=== PATIENT | female | born 1930 | race Caucasian/White ===

== ENCOUNTER 2017-08-04 18:05 | Inpatient (IN) | payer MEDICARE, BC ==
[~2017-08-04] VITALS: Ht 162.6 cm; Wt 70.3 kg
--- NOTE | ~2017-08-04 | PN ---
PATIENT:HUMBERTO BENNETT MEDICAL RECORD: [id number] LOCATION:KENIA Norris112 ADMISSION DATE: 08/04/17 PROGRESS NOTE DATE OF SERVICE: 08/28/2017 SUBJECTIVE: The patient's case was discussed with staff. She has no new complaint. OBJECTIVE: The patient denies intent to harm herself or others. She tolerates her medicines well. Eye contact is fair. ASSESSMENT: No change in diagnoses. PLAN: The patient is not eating very well. She has a very advanced dementia. I am going to order Megace to assist with appetite stimulation. TRANSINT:[id number] Voice Confirmation ID: [id number] DOCUMENT ID: [id number] FAWN SIDDIQI MD at 1445 CC: [id number] DICTATION DATE: 08/28/17 1331 RADIO SCRIPT WRITER: 08/28/17 1348 ADM IN [facility] [address] [place] [id number]
--- NOTE | ~2017-08-04 | PN ---
PATIENT:HUMBERTO BENNETT MEDICAL RECORD: [id number] LOCATION:[facility] Norris112 ADMISSION DATE: 08/04/17 PROGRESS NOTE DATE OF SERVICE: 08/11/2017 SUBJECTIVE: The patient's case was discussed with staff. She has no new complaint. OBJECTIVE: The patient denies intent to harm herself or others. She is tolerating her medications well. ASSESSMENT: No change in diagnoses. PLAN: Brief supportive and educational interventions were made. Alf prognosis is guarded. TRANSINT:[id number] Voice Confirmation ID: [id number] DOCUMENT ID: [id number] FAWN SIDDIQI MD at 1355 CC: [id number] DICTATION DATE: 08/11/17 1338 BREAKER OFF: 08/11/17 1720 ADM IN [place] [id number] [place] [address]
--- NOTE | ~2017-08-04 | PN ---
PATIENT:HUMBERTO BENNETT MEDICAL RECORD: [id number] LOCATION:KEN[facility] Norris112 ADMISSION DATE: 08/04/17 PROGRESS NOTE DATE OF SERVICE: 08/17/2017 SUBJECTIVE: No new verbal complaint. OBJECTIVE: The patient has shown more sedation and some muscular rigidity since yesterday. On exam, mood is euthymic. Affect is very reserved. Speech is minimal. Content of thought unchanged. Sensorium unchanged. ASSESSMENT: No change in diagnosis. PLAN: 1. We will discontinue Seroquel altogether. 2. Maintain other medications for now. 3. Continue supportive therapy. TRANSINT:[id number] Voice Confirmation ID: [id number] DOCUMENT ID: [id number] HAIDER LOMBARDO III, MD at 7937 CC: [id number] DICTATION DATE: 08/17/17 1225 PAYROLL ANALYST: 08/17/17 1238 ADM IN [facility] [address] [place] [id number]
--- NOTE | ~2017-08-04 | PN ---
PATIENT:HUMBERTO BENNETT MEDICAL RECORD: [id number] LOCATION:KENIA Norris112 ADMISSION DATE: 08/04/17 PROGRESS NOTE DATE OF SERVICE: 08/15/2017 SUBJECTIVE: No new complaint noted. OBJECTIVE: Staff reports the patient is continuing to have some visual hallucinations. However, her behavior has been good. She is tolerating medications well. On exam, mood is euthymic. Affect is very constricted. Speech is rather terse. Content of thought as noted above. Sensorium unchanged. ASSESSMENT: No change in diagnosis. PLAN: 1. Continue current medications. 2. Continue supportive therapy. TRANSINT:[id number] Voice Confirmation ID: [id number] DOCUMENT ID: [id number] HAIDER LOMBARDO III, MD at 2034 CC: [id number] DICTATION DATE: 08/15/17 1114 SERVICE WRITER: 08/15/17 1213 ADM IN [facility] [address] [place] [address]
--- NOTE | ~2017-08-04 | PN ---
PATIENT:HUMBERTO BENNETT MEDICAL RECORD: [id number] LOCATION:KENIA Jr112 ADMISSION DATE: 08/04/17 PROGRESS NOTE DATE OF SERVICE: 08/18/2017 SUBJECTIVE: No new complaint. OBJECTIVE: The patient is overall doing better. She is not exhibiting stiffness as she had before. Eating is improved. She is taking medications. On exam, mood is euthymic. Affect reserved. Speech is terse. Content of thought is unchanged. Sensorium unchanged. ASSESSMENT: No change in diagnosis. PLAN: 1. Maintain current medication. 2. Continue supportive therapy. TRANSINT:[id number] Voice Confirmation ID: [id number] DOCUMENT ID: [id number] HAIDER LOMBARDO III, MD at 1142 CC: [id number] DICTATION DATE: 08/18/17 1212 RESIDENTIAL LEASING MANAGER: 08/18/17 1218 ADM IN [place] [id number] [place] [id number]
--- NOTE | ~2017-08-04 | PN ---
PATIENT:HUMBERTO BENNETT MEDICAL RECORD: [id number] LOCATION:TamaraCorbinSHALINI Norris112 ADMISSION DATE: 08/04/17 PROGRESS NOTE DATE OF SERVICE: 08/16/2017 SUBJECTIVE: No new complaint. OBJECTIVE: The patient is better overall. She is less sedated. She is more cooperative with staff. On exam, mood is euthymic. Affect bland. Speech is terse. Content of thought is unchanged. Sensorium is unchanged. PLAN: 1. All current medications will be continued. 2. Continue supportive therapy. TRANSINT:[id number] Voice Confirmation ID: [id number] DOCUMENT ID: [id number] HAIDER LOMBARDO III, MD at 2034 CC: [id number] DICTATION DATE: 08/16/17 1014 FOREST PATHOLOGY ASSOCIATE PROFESSOR: 08/16/17 1111 ADM IN [facility] [address] [place] [address]
--- NOTE | ~2017-08-04 | PN ---
PATIENT:HUMBERTO BENNETT MEDICAL RECORD: [id number] LOCATION:[facility] Norris112 ADMISSION DATE: 08/04/17 PROGRESS NOTE DATE OF SERVICE: 08/07/2017 SUBJECTIVE: No new complaint. OBJECTIVE: The patient has been showing the episodic agitation. She did require p.r.n. yesterday. However, she is taking her medications as ordered. On exam, mood is slightly anxious. Affect is shallow and brittle. Speech is repetitive. Content of thought is negative for suicidal ideation. The patient had reported visual hallucinations. Sensorium shows no change. ASSESSMENT: No change in diagnosis. PLAN: 1. Add Aricept 5 mg daily. 2. Continue other current medications. 3. Continue supportive therapy. TRANSINT:[id number] Voice Confirmation ID: [id number] DOCUMENT ID: [id number] HAIDER LOMBARDO III, MD at 0919 CC: [id number] DICTATION DATE: 08/07/17 1141 POLICY SPECIALIST: 08/07/17 1201 ADM IN [place] [address] [place] [id number]
--- NOTE | ~2017-08-04 | PN ---
PATIENT:HUMBERTO BENNETT MEDICAL RECORD: [id number] LOCATION:KENIA McdonaldCorbin112 ADMISSION DATE: 08/04/17 PROGRESS NOTE DATE OF SERVICE: 08/14/2017 SUBJECTIVE: No new complaint. OBJECTIVE: Staff reports the over the weekend, the patient was rather drowsy from time to time. Behaviorly, she has done well. Her family visited and is pleased with her progress. On exam today, mood is euthymic. Affect is very reserved. Speech is terse. Content of thought does not show evidence of overt psychosis. Sensorium shows no change. ASSESSMENT: No change in diagnosis. PLAN: 1. We will reduce Seroquel to 25 mg h.s. only. 2. Continue other current medications. 3. Continue supportive therapy. TRANSINT:[id number] Voice Confirmation ID: [id number] DOCUMENT ID: [id number] HAIDER LOMBARDO III, MD at 1903 CC: [id number] DICTATION DATE: 08/14/17 0909 CONSTRUCTION CONSULTANT: 08/14/17 1114 ADM IN [facility] [address] [place] [address]
--- NOTE | ~2017-08-04 | PN ---
PATIENT:HUMBERTO BENNETT MEDICAL RECORD: [id number] LOCATION:[facility] Norris112 ADMISSION DATE: 08/04/17 PROGRESS NOTE DATE OF SERVICE: 08/25/2017 SUBJECTIVE: The patient's case was discussed with staff. She has no new complaint. OBJECTIVE: The patient is in good behavioral control with limited insight about her condition. She tolerates her medicines well. ASSESSMENT: No change in diagnoses. PLAN: Current medicines and therapies have been reviewed and will be maintained. Long-term prognosis is guarded. TRANSINT:[id number] Voice Confirmation ID: [id number] DOCUMENT ID: [id number] FAWN SIDDIQI MD at 1921 CC: [id number] DICTATION DATE: 08/25/17 1404 TASTE TESTER: 08/25/17 1418 ADM IN [place] [id number] [place] [address]
--- NOTE | ~2017-08-04 | PN ---
PATIENT:HUMBERTO BENNETT MEDICAL RECORD: [id number] LOCATION:[facility] Norris112 ADMISSION DATE: 08/04/17 PROGRESS NOTE DATE OF SERVICE: 08/12/2017 SUBJECTIVE: The patient's case was discussed with staff. She has no new complaint. OBJECTIVE: The patient is in good behavioral control with limited insight about her condition. She tolerates her medicines well. ASSESSMENT: No change in diagnoses. PLAN: Brief supportive and educational interventions were made. Detention prognosis is guarded. I am going to change the patient's Ativan from 3 times a day to twice a day because of some daytime sedation. TRANSINT:[id number] Voice Confirmation ID: [id number] DOCUMENT ID: [id number] FAWN SIDDIQI MD at 1355 CC: [id number] DICTATION DATE: 08/12/17 0833 JAVA J2EE TECHNICAL LEAD: 08/12/17 1200 ADM IN [facility] [address] [place] [address]
--- NOTE | ~2017-08-04 | PN ---
PATIENT:HUMBERTO BENNETT MEDICAL RECORD: [id number] LOCATION:KEN[facility] Norris112 ADMISSION DATE: 08/04/17 PROGRESS NOTE DATE OF SERVICE: 08/26/2017 SUBJECTIVE: The patient's case was discussed with staff. She has no new complaint. OBJECTIVE: The patient is in good behavioral control. She has limited insight about her condition. She is eating a little better. ASSESSMENT: No change in diagnoses. PLAN: Supportive and educational interventions were made. Fci prognosis is guarded. TRANSINT:[id number] Voice Confirmation ID: [id number] DOCUMENT ID: [id number] FAWN SIDDIQI MD at 1809 CC: [id number] DICTATION DATE: 08/26/17 1027 MANAGER OF SOFTWARE DEVELOPMENT: 08/26/17 1118 ADM IN [place] [id number] [place] [address]
--- NOTE | ~2017-08-04 | PN ---
PATIENT:HUMBERTO BENNETT MEDICAL RECORD: [id number] LOCATION:KEN[facility] Norris112 ADMISSION DATE: 08/04/17 PROGRESS NOTE DATE OF SERVICE: 08/08/2017 SUBJECTIVE: No new complaint. OBJECTIVE: It is confirmed, the patient does have a urinary tract infection. She is being treated for this. The patient did sleep well. She continues to be somewhat demanding and intrusive, but aside from this, no new problems. On exam, mood is slightly irritable. Affect is brittle. Speech tends to be terse. Content of thought is negative for overt psychosis. Sensorium shows no change. ASSESSMENT: No change in diagnosis. PLAN: 1. Continue current medications. 2. Continue supportive therapy. TRANSINT:[id number] Voice Confirmation ID: [id number] DOCUMENT ID: [id number] HAIDER LOMBARDO III, MD at 1056 CC: [id number] DICTATION DATE: 08/08/17 1014 DESIGN TECH: 08/08/17 1312 ADM IN [place] [id number] [place] [id number]
--- NOTE | ~2017-08-04 | PN ---
PATIENT:HUMBERTO BENNETT MEDICAL RECORD: [id number] LOCATION:KENIA Jr112 ADMISSION DATE: 08/04/17 PROGRESS NOTE DATE OF SERVICE: 08/09/2017 SUBJECTIVE: No new complaint. OBJECTIVE: The patient was briefly agitated yesterday. Overall, she has been reasonably stable. She is tolerating medications well. On exam, mood is slightly irritable. Affect is shallow. Speech is tangential. Content of thought is positive for mild delusional ideation. Sensorium shows no change. ASSESSMENT: No change in diagnosis. PLAN: 1. Continue all current medications. 2. Continue supportive therapy. TRANSINT:[id number] Voice Confirmation ID: [id number] DOCUMENT ID: [id number] HAIDER LOMBARDO III, MD at 1035 CC: [id number] DICTATION DATE: 08/09/17 1130 WELDER GAS TUNGSTEN ARC: 08/09/17 1222 ADM IN [facility] [address] [place] [address]
--- NOTE | ~2017-08-04 | PN ---
PATIENT:HUMBERTO BENNETT MEDICAL RECORD: [id number] LOCATION:TamaraCorbinSHALINI Norris112 ADMISSION DATE: 08/04/17 PROGRESS NOTE DATE OF SERVICE: 08/30/2017 SUBJECTIVE: The patient's case was discussed with staff. She has no new complaint. OBJECTIVE: The patient is in good behavioral control with limited insight about her condition. Her sodium is better, but her chloride is still slightly critical. She is severely impaired. Her oral intake is poor. ASSESSMENT: No change in diagnoses. PLAN: The patient is in the advanced stages of the disease. Her long-term prognosis is guarded. I anticipate she can be transitioned back to the senior care soon and will receive comfort care, palliative treatment there. TRANSINT:[id number] Voice Confirmation ID: [id number] DOCUMENT ID: [id number] FAWN SIDDIQI MD at 1304 CC: [id number] DICTATION DATE: 08/30/17 1200 PAIRER ODDS: 08/30/17 1221 ADM IN [place] [address] [place] [id number]
--- NOTE | ~2017-08-04 | PN ---
PATIENT:HUMBERTO BENNETT MEDICAL RECORD: [id number] LOCATION:KENIA McdonaldCorbin112 ADMISSION DATE: 08/04/17 PROGRESS NOTE DATE OF SERVICE: 08/22/2017 SUBJECTIVE: No new complaint. OBJECTIVE: The patient has shown a bit more responsiveness. She is able to converse on a limited basis with staff members. On exam, mood is for the most part euthymic. Affect is very constricted. Speech is terse. Content of thought is unchanged. Sensorium unchanged. ASSESSMENT: No change in diagnosis. PLAN: 1. Continue all current medications. 2. Continue supportive therapy. TRANSINT:[id number] Voice Confirmation ID: [id number] DOCUMENT ID: [id number] HAIDER LOMBARDO III, MD at 1040 CC: [id number] DICTATION DATE: 08/22/17 1228 MATCHER LEATHER PARTS: 08/22/17 1233 ADM IN [place] [address] [place] [id number]
--- NOTE | ~2017-08-04 | PN ---
PATIENT:HUMBERTO BENNETT MEDICAL RECORD: [id number] LOCATION:TamaraCorbinSHALINI Norris112 ADMISSION DATE: 08/04/17 PROGRESS NOTE DATE OF SERVICE: 08/29/2017 SUBJECTIVE: The patient's case was discussed with staff. She has no new complaint. OBJECTIVE: The patient is in good behavioral control with limited insight about her condition. She unfortunately has not been taking adequate fluids and is hypernatremic at this time. The patient's dementia is very advanced and it would seem reasonable that she receive comfort care measures. I do anticipate that she can be returned to the skilled nursing soon. TRANSINT:[id number] Voice Confirmation ID: [id number] DOCUMENT ID: [id number] FAWN SIDDIQI MD at 1147 CC: [id number] DICTATION DATE: 08/29/17 1452 FIELD MARKETING TEAM LEADER: 08/29/17 1516 ADM IN [place] [id number] [place] [address]
--- NOTE | ~2017-08-04 | PN ---
PATIENT:HUMBERTO BENNETT MEDICAL RECORD: [id number] LOCATION:TamaraCorbinSHALINI Norris112 ADMISSION DATE: 08/04/17 PROGRESS NOTE DATE OF SERVICE: 08/23/2017 SUBJECTIVE: No new complaint. OBJECTIVE: The patient continues to show somewhat slow responsiveness. She continues to have ongoing medical problems that are being addressed by primary care. On exam, mood euthymic. Affect very constricted. Speech is minimal. Content of thought appears unchanged. Sensorium unchanged. ASSESSMENT: No change in diagnosis. PLAN: 1. Continue current medication. 2. Continue supportive therapy. TRANSINT:[id number] Voice Confirmation ID: [id number] DOCUMENT ID: [id number] HAIDER LOMBARDO III, MD at 2048 CC: [id number] DICTATION DATE: 08/23/17 1120 TORCH OPERATOR: 08/23/17 1232 ADM IN [place] [id number] [place] [id number]
--- NOTE | ~2017-08-04 | PSY ---
PATIENT NAME:HUMBERTO BENNETT MEDICAL RECORD: [id number] : [birth year] LOCATION:KENIA Jr1121 ADMISSION DATE: 08/04/17 ACCOUNT: [id number] PSYCHIATRIC EVALUATION DATE OF EVALUATION: 08/05/17 INITIAL PSYCHIATRIC WORKUP IDENTIFYING DATA: This is the second [facility] admission for this 86-year-old white female. She was admitted from [facility] because of worsening agitation, combativeness, visual hallucinations, and lack of cooperation with care. The patient has a previously documented history of Alzheimer dementia. She had been treated at the [place] [facility] with benzodiazepines and Seroquel, but these were unsuccessful in controlling her agitation. The patient was seen at [facility] 4 years ago, but stayed only briefly, in fact she refused to stay after the initial assessment. At that time, the patient had been a for about 1 year and had very significant depressive symptoms. She had a daughter in [place] who was involved in her care at that point. The patient was recommended at that time to continue an outpatient followup, but it is not known if she actually did. In the interim evidently, she has deteriorated considerably and was eventually admitted to the [place] [facility] status. PAST MEDICAL HISTORY: Significant for hypothyroidism, allergic rhinitis, osteoarthritis, hyperlipidemia, and as mentioned major depressive disorder. FAMILY HISTORY: Positive for diabetes in one of her children, but no documented psychiatric family history. SOCIAL HISTORY: The patient is currently a [place] [facility] resident. She still has family involved in her care. No history of alcohol or drug use. No legal entanglements as far as can be determined. MEDICATIONS: Prior to admission included albuterol, Seroquel, Ativan, fluticasone, Synthroid, multivitamins, Prozac, and vitamin D3 supplements. MENTAL STATUS: On exam, the patient is marginally cooperative. Mood is irritable. Affect is brittle. Speech tends to be tangential. Content of thought is positive for recent paranoid ideation and visual hallucinations. The patient is oriented to person and the fact that she is in hospital. She is not correctly oriented as to place. Otherwise, she is not oriented as to time. She shows global memory impairment. DIAGNOSTIC IMPRESSION: AXIS I: Alzheimer dementia with psychotic features, major depressive disorder. AXIS II: No diagnosis. AXIS III: Hyperlipidemia, hypothyroidism, vitamin D deficiency, allergic rhinitis, and osteoarthritis. AXIS IV: Severe. AXIS V: 34. PLAN: 1. The patient is admitted for further medical and psychiatric evaluation. 2. Diet and activities as tolerated. 3. Supportive therapy. TRANSINT:[id number] Voice Confirmation ID: [id number] DOCUMENT ID: [id number] HAIDER LOMBARDO III, MD at 1124 CC: [id number] DICTATION DATE: 08/05/17 1110 HYDROELECTRIC PLANT OPERATOR: 08/05/17 1202 ADM IN [place] [id number] [place] [id number]
--- NOTE | ~2017-08-04 | DS ---
PATIENT:HUMBERTO BENNETT :[birth year] MEDICAL RECORD: [id number] DISCHARGE SUMMARY ADMISSION DATE: 08/04/17 DISCHARGE DATE: 08/31/17 DATE OF ADMISSION: 08/04/2017. DATE OF DISCHARGE: 08/31/2017. HISTORY: An 86-year-old white female admitted from a local longterm because of agitation, combativeness, visual hallucinations. The patient had previously been diagnosed with Alzheimer dementia. Because of worsening mental status change and combativeness, she was admitted for further details, please see previously dictated history. ADMITTING COURSE IN HOSPITAL: The patient was seen in consultation by Dr. Flor. Dr. Flor noted the presence of hyperlipidemia, hypothyroidism, diverticular disease, vitamin D deficiency, allergic rhinitis, osteoarthritis. The patient was noted to exhibit good response to conservative measures in terms of managing her agitation. The patient was not maintained on routine doses of antipsychotics or anxiolytics. She was started on Aricept 5 mg at bedtime. However, the patient continued to show decline in terms of poor oral intake. Family was consulted and hospice evaluation was requested. The patient did not qualify for inpatient hospice. This was arranged at the longterm where she had been living. The patient did not require further psychiatric intervention and family desired to have the patient return to the longterm with hospice care. FINAL DIAGNOSES: AXIS I: Alzheimer dementia with behavioral disturbance. AXIS II: No diagnosis. AXIS III: Dehydration, hyperlipidemia, hypothyroidism, vitamin D deficiency, allergic rhinitis, osteoarthritis. AXIS IV: Severe. AXIS V: 34. PLAN: 1. The patient will be transferred back to the longterm with hospice care and continued fluid replacement. 2. Followup through primary care physician assigned to the longterm. TRANSINT:[id number] Voice Confirmation ID: [id number] DOCUMENT ID: [id number] HAIDER LOMBARDO III, MD at 1341 CC: [id number] DICTATION DATE: 09/01/17 1227 FOLLOW UP CLERK: 09/01/17 1239 DIS IN 08/31/17 [place] [id number]
--- NOTE | ~2017-08-04 | PN ---
PATIENT:HUMBERTO BENNETT MEDICAL RECORD: [id number] LOCATION:KENIA Norris112 ADMISSION DATE: 08/04/17 PROGRESS NOTE DATE OF SERVICE: 08/24/2017 SUBJECTIVE: No new complaint. OBJECTIVE: The patient is a little bit less sleepy. Appetite has improved somewhat. She is tolerating current medications. Psychotropics have been stopped. On exam, mood is euthymic. Affect constricted. Speech is very terse. Content of thought is negative for overt psychosis. Sensorium unchanged. ASSESSMENT: No change in diagnosis. PLAN: 1. Maintain current medication. 2. Continue supportive therapy. TRANSINT:[id number] Voice Confirmation ID: [id number] DOCUMENT ID: [id number] HAIDER LOMBARDO III, MD at 1021 CC: [id number] DICTATION DATE: 08/24/17 1140 BIODIESEL PRODUCTION ASSOCIATE: 08/24/17 1159 DIS IN 08/31/17 [place] [address] [place] [address]
--- NOTE | ~2017-08-04 | PN ---
PATIENT:HUMBERTO BENNETT MEDICAL RECORD: [id number] LOCATION:KENIA McdonaldCorbin112 ADMISSION DATE: 08/04/17 PROGRESS NOTE DATE OF SERVICE: 08/31/2017 SUBJECTIVE: The patient's case was discussed with staff. She has no new complaint. OBJECTIVE: The patient denies intent to harm herself or others. She generally tolerates her medicines well. Eye contact is fair. ASSESSMENT: No change in diagnoses. PLAN: Brief supportive and educational interventions were made. The patient's long-term prognosis is guarded. She is willing going to go to the [facility] today and will be in their palliative care unit. TRANSINT:[id number] Voice Confirmation ID: [id number] DOCUMENT ID: [id number] FAWN SIDDIQI MD at 1403 CC: [id number] DICTATION DATE: 08/31/17 1322 ELECTRIC SIGN WIRER: 08/31/17 1336 DIS IN 08/31/17 [place] [id number] [place] [address]
--- NOTE | ~2017-08-04 | PN ---
PATIENT:HUMBERTO BENNETT MEDICAL RECORD: [id number] LOCATION:TamaraCorbinSHALINI Norris112 ADMISSION DATE: 08/04/17 PROGRESS NOTE DATE OF SERVICE: 08/10/2017 SUBJECTIVE: No new complaint. OBJECTIVE: The patient has continued to do fairly well. She has a rather peculiar affect much of the time, but is cooperative with medications. Mood is at times anxious, at other times bland and euthymic. Speech tends to be terse at times, tangential at others. Content of thought is negative for evidence of psychosis. Sensorium is unchanged. ASSESSMENT: No change in diagnosis. PLAN: 1. Continue current treatment plan. 2. The patient's family from [place] will be visiting this weekend and a determination will be made soon about discharge. TRANSINT:[id number] Voice Confirmation ID: [id number] DOCUMENT ID: [id number] HAIDER LOMBARDO III, MD at 0816 CC: [id number] DICTATION DATE: 08/10/17 1120 UTILITY MANAGER: 08/10/17 1149 ADM IN [place] [address] [place] [id number]
[~2017-08-04 18:05] MED LIST: COLACE100 MG PO; EC-NAPROSYN500 MG PO; MELATONIN 10 M1 EACH PO; NASONEX NASAL S17 GM NS; VIIBRYD40 MG PO; XANAX0.25 MG PO
[2017-08-04] MEDS ORDERED: PROAIR HFA8.5 GM INH (18:18)
[2017-08-04] MEDS ORDERED: ATIVAN0.5 MG PO (18:18)
[2017-08-04] MEDS ORDERED: VITAMIN B COMPLEX (18:21)
[2017-08-04] MEDS ORDERED: BUSPAR10 MG PO (18:21)
[2017-08-04] MEDS ORDERED: FLUTICASONE PRO16 GM NASAL (18:22)
[2017-08-04] MEDS ORDERED: SYNTHROID75 MCG PO (18:24)
[2017-08-04] MEDS ORDERED: PROZAC20 MG PO (18:25)
[2017-08-04] MEDS ORDERED: MULTIPLE VITAMI1 TA1 PO (18:25)
[2017-08-04] MEDS ORDERED: SEROQUEL50 MG PO (18:26)
[2017-08-04] MEDS ORDERED: ACETAMINOPHEN500 M1 PO (18:27)
[2017-08-04] MEDS ORDERED: VITAMIN D31000 UNIT PO (18:28)
[2017-08-04 19:34] VITALS: BP 137/66; BMI 26.7
[2017-08-04 20:10] VITALS: BP 146/80
[2017-08-05 05:44] LABS: BASOPHILS 0.1 % (0-2); EOSINOPHILS 0.7 % (0-7); HEMATOCRIT 36.2 % (36.0-48.0); HEMOGLOBIN 11.8 g/dL (12-16); IMMATURE GRANULOCYTES 0.3 % (0-5); LYMPHOCYTES 17.1 % (15-50); MCH 29.9 pg (26.0-34.0); MCHC 32.6 g/dL (31.0-37.0); MCV 91.6 fL (80.0-100.0); MEAN PLATELET VOLUME 9.5 fL (7.4-10.4); MONOCYTES 9.6 % (2-11); NEUTROPHILS 72.2 % (40-80); PLATELET COUNT 334 10x3/uL (130-400); RBC 3.95 10x6/uL (4.00-5.40); RDW 14.3 % (11.5-14.5); WBC 8.7 10x3/uL (4.8-10.8)
[2017-08-05 06:20] LABS: ALBUMIN 3.2 g/dL (3.4-5.0); ANION GAP 15.4 mmol/L (8-16); BILIRUBIN - TOTAL 0.5 mg/dL (0.2-1.3); CARBON DIOXIDE 26.4 mmol/L (21.0-32.0); LDL-HDL RATIO 1.8 ratio (1.5-3.5); POTASSIUM - SERUM 3.8 mmol/L (3.5-5.1); PROTEIN - SERUM 7.5 g/dL (6.4-8.2); THYROID STIMULATING HORMONE 7.99 uIU/mL (0.36-3.74)
[2017-08-05 07:00] VITALS: BP 153/75
[2017-08-05 19:57] VITALS: BP 160/72
[2017-08-06 07:34] LABS: APPEARANCE CLOUDY (CLEAR); BILIRUBIN NEGATIVE (NEGATIVE); COLOR YELLOW (YELLOW); GLUCOSE NEGATIVE (NEGATIVE); KETONE NEGATIVE (NEGATIVE); NITRITE POSITIVE (NEGATIVE); PROTEIN 1+ mg/dL (NEGATIVE); SPECIFIC GRAVITY 1.015 (1.005-1.020); UROBILINOGEN NORMAL (NORMAL)
[2017-08-06 07:35] LABS: BACTERIA MANY /hpf (NONE SEEN); EPITHELIAL CELLS 0-5 /hpf (0-5); RED CELLS - URINE 0-5 /hpf (0-5)
[2017-08-06 07:52] VITALS: BP 130/70
[2017-08-06 19:53] VITALS: BP 152/64
[2017-08-07 07:00] VITALS: BP 156/73
[2017-08-07 10:23] VITALS: BMI 26.6
[2017-08-08 06:14] LABS: RAPID PLASMA REAGIN Non Reactive (Non Reactive)
[2017-08-08 07:00] VITALS: BP 173/75
[2017-08-08 08:19] LABS: FOLATE (FOLIC ACID) - SERUM 16.5 ng/mL (>3.0)
[2017-08-08 09:17] LABS: VITAMIN D 25 HYDROXY 44.9 ng/mL (30.0-100.0)
[2017-08-08 10:37] VITALS: BMI 26.6
[2017-08-08 20:08] VITALS: BP 180/78
[2017-08-09 10:47] VITALS: BP 169/73
[2017-08-09 20:06] VITALS: BP 147/59
[2017-08-10 09:31] VITALS: BP 146/76
[2017-08-10 19:44] VITALS: BP 140/70
[2017-08-11 09:32] VITALS: BP 182/85
[2017-08-11 20:22] VITALS: BP 170/76
[2017-08-12 09:57] VITALS: BP 134/76
[2017-08-12 20:01] VITALS: BP 150/63
[2017-08-13 07:00] VITALS: BP 167/74
[2017-08-13 19:30] VITALS: BP 162/81
[2017-08-14 07:00] VITALS: BP 173/69
[2017-08-14 19:49] VITALS: BP 149/82
[2017-08-15 09:52] VITALS: BP 141/72
[2017-08-15 11:05] VITALS: BP 141/72
[2017-08-15 16:12] VITALS: Ht 162.6 cm; Wt 70.3 kg
[2017-08-15 19:42] VITALS: BP 173/74
[2017-08-16 09:18] VITALS: BP 183/94
[2017-08-16 09:45] VITALS: BP 183/94
[2017-08-16 09:52] VITALS: BP 183/94
[2017-08-16 20:30] VITALS: BP 154/69
[2017-08-17 10:33] VITALS: BP 180/75
[2017-08-17 21:22] VITALS: BP 167/76
[2017-08-18 09:20] VITALS: BP 194/95
[2017-08-18 20:52] VITALS: BP 173/85
[2017-08-19 10:50] VITALS: BP 146/86
[2017-08-19 20:33] VITALS: BP 180/75
[2017-08-19 22:38] LABS: ANION GAP 9.6 mmol/L (8-16); CALCIUM 9.1 mg/dL (8.5-10.1); CARBON DIOXIDE 25.9 mmol/L (21.0-32.0); CREATININE - SERUM 1.1 mg/dL (0.6-1.3); POTASSIUM - SERUM 3.5 mmol/L (3.5-5.1)
[2017-08-20 07:00] VITALS: BP 155/80
[2017-08-20 19:30] VITALS: BP 154/82
[2017-08-21 07:00] VITALS: BP 145/68
[2017-08-21 19:43] VITALS: BP 147/88
[2017-08-22 07:00] VITALS: BP 159/58
[2017-08-22 21:09] VITALS: BP 136/58
[2017-08-23 11:11] VITALS: BP 166/81
[2017-08-23 12:02] VITALS: BP 166/81
[2017-08-24 02:12] VITALS: BP 128/054
[2017-08-24 10:08] VITALS: BP 175/83
[2017-08-24 19:16] VITALS: BP 106/65
[2017-08-25 09:47] VITALS: BP 155/75
[2017-08-25 19:55] VITALS: BP 148/81
[2017-08-26 07:49] VITALS: BP 132/60
[2017-08-26 09:48] VITALS: BP 132/60
[2017-08-26 19:15] VITALS: BP 175/84
[2017-08-27 07:00] VITALS: BP 139/62
[2017-08-27 18:56] VITALS: BP 169/082
[2017-08-28 07:00] VITALS: BP 153/69
[2017-08-28 20:19] VITALS: BP 147/71
[2017-08-28 22:08] LABS: CALCIUM 8.6 mg/dL (8.5-10.1); CARBON DIOXIDE 27.8 mmol/L (21.0-32.0); CREATININE - SERUM 1.4 mg/dL (0.6-1.3); POTASSIUM - SERUM 3.6 mmol/L (3.5-5.1)
[2017-08-28 22:15] LABS: ANION GAP 16.8 mmol/L (8-16)
[2017-08-29 07:40] VITALS: BP 129/61
[2017-08-29 10:11] LABS: CALCIUM 8.9 mg/dL (8.5-10.1); CARBON DIOXIDE 27.2 mmol/L (21.0-32.0); CREATININE - SERUM 1.7 mg/dL (0.6-1.3); POTASSIUM - SERUM 3.5 mmol/L (3.5-5.1)
[2017-08-29 10:20] LABS: ANION GAP 16.3 mmol/L (8-16)
[2017-08-29 10:26] LABS: HEMATOCRIT 46.5 % (36.0-48.0); HEMOGLOBIN 13.8 g/dL (12-16)
[2017-08-29 19:30] VITALS: BP 153/78
[2017-08-30 07:29] LABS: BASOPHILS 0.1 % (0-2); EOSINOPHILS 3.6 % (0-7); HEMATOCRIT 39.5 % (36.0-48.0); HEMOGLOBIN 11.8 g/dL (12-16); IMMATURE GRANULOCYTES 0.7 % (0-5); LYMPHOCYTES 18.4 % (15-50); MCH 29.1 pg (26.0-34.0); MCHC 29.9 g/dL (31.0-37.0); MCV 97.5 fL (80.0-100.0); MEAN PLATELET VOLUME 12.1 fL (7.4-10.4); MONOCYTES 6.4 % (2-11); NEUTROPHILS 70.8 % (40-80); PLATELET COUNT 135 10x3/uL (130-400); RBC 4.05 10x6/uL (4.00-5.40); WBC 10.1 10x3/uL (4.8-10.8)
[2017-08-30 07:55] VITALS: BP 136/74
[2017-08-30 08:07] LABS: ANION GAP 15.1 mmol/L (8-16); CALCIUM 7.8 mg/dL (8.5-10.1); CARBON DIOXIDE 26.1 mmol/L (21.0-32.0); CREATININE - SERUM 1.2 mg/dL (0.6-1.3); POTASSIUM - SERUM 3.2 mmol/L (3.5-5.1)
[2017-08-30 20:48] VITALS: BP 141/68
[2017-08-31 07:23] LABS: ANION GAP 11.7 mmol/L (8-16); CALCIUM 7.5 mg/dL (8.5-10.1); CARBON DIOXIDE 25.5 mmol/L (21.0-32.0); POTASSIUM - SERUM 3.2 mmol/L (3.5-5.1)
[2017-08-31 08:11] VITALS: BP 123/49
[2017-08-31] MEDS ORDERED: MEGACE40 MG PO (11:38)
[2017-08-31] MEDS ORDERED: ARICEPT5 MG PO (11:39)
[2017-08-31] MEDS ORDERED: VOLTAREN100 GM TOPICAL (11:40)
[2017-08-31] MEDS ORDERED: PEPCID20 MG PO (11:40)
[2017-08-31] MEDS ORDERED: ARTIFICIAL TEAR15 ML EACH EYE (11:40)
[2017-08-31] MEDS ORDERED: FLORAJEN3 CAPS460 MG PO (11:41)
[2017-08-31] MEDS ORDERED: LIDODERM 5 %1 PATCH TRANSDERM (11:41)
[2017-08-31] MEDS ORDERED: CALMOSEPTINE OI71 GM TOPICAL (11:41)
== END 2017-08-31 15:30 | DRG 57 ==
LOC: D.PSYCH 18:05
PROVIDERS: Family Medicine; Psychiatry & Neurology Psychiatry
DX: G30.9 Alzheimer's disease, unspecified (principal); F02.81 Dementia in other diseases classified elsewhere, unspecified severity, with behavioral disturbance; N39.0 Urinary tract infection, site not specified; F32.9 Major depressive disorder, single episode, unspecified; E78.5 Hyperlipidemia, unspecified; E03.9 Hypothyroidism, unspecified; E55.9 Vitamin D deficiency, unspecified; J30.9 Allergic rhinitis, unspecified; B96.20 Unspecified Escherichia coli [E. coli] as the cause of diseases classified elsewhere; E86.0 Dehydration; E87.6 Hypokalemia; F41.9 Anxiety disorder, unspecified

== ENCOUNTER 2017-10-14 19:13 | Inpatient (IN) | payer MEDICARE, BC ==
[~2017-10-14] VITALS: Ht 152.4 cm; Wt 66.6 kg
--- NOTE | ~2017-10-14 | PSY ---
PATIENT NAME:HUMBERTO BENNETT MEDICAL RECORD: [id number] : [birth year] LOCATION:[facility] ADMISSION DATE: 10/14/17 ACCOUNT: [id number] PSYCHIATRIC EVALUATION DATE OF EVALUATION: 10/16/17 IDENTIFYING DATA: Third recent [facility] admission for this 86-year-old white female. HISTORY OF PRESENT ILLNESS: This patient has had 2 previous admissions to [facility]. 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 She is a resident of a snf. On the most recent admission, the patient had begun exhibiting combativeness, poor cooperation and visual hallucinosis. The patient was treated for a couple of weeks and return to the snf, but she has once again begun showing agitation and combativeness. The patient had been seen approximately 4 years ago at [facility] and at that time had severe depressive symptoms. In the interim, she has developed severe dementia. PAST MEDICAL HISTORY: Significant for allergic rhinitis, hypothyroidism, osteoarthritis, hyperlipidemia. FAMILY HISTORY: Negative for psychiatric illness. SOCIAL HISTORY: The patient has a daughter who is involved in her care. No history of drug or alcohol abuse. ALLERGIES: INCLUDE STATINS AND HMG-COA REDUCTASE INHIBITORS. MENTAL STATUS: The patient is agitated and irritable on interview. Affect is very brittle. Speech is rambling and tangential. Content of thought is positive for nonspecific paranoid ideation. The patient is oriented to person only. She shows global memory impairment. DIAGNOSTIC IMPRESSION: AXIS I: Alzheimer dementia with psychotic features. AXIS II: No diagnosis. AXIS III: Hypothyroidism, vitamin D deficiency, inhalant allergies, osteoarthritis, hyperlipidemia. AXIS IV: Severe. AXIS V: 32. PLAN: 1. The patient is admitted for further medical and psychiatric evaluation. 2. Medication adjustment as indicated. 3. Daily supportive therapy. TRANSINT:[id number] Voice Confirmation ID: [id number] DOCUMENT ID: [id number] HAIDER LOMBARDO III, MD at 0828 CC: [id number] DICTATION DATE: 10/16/17919 PRINTED CIRCUIT BOARD PANELS DEVELOPER: 10/16/17 1016 ADM IN [place] [address] [place] [address]
--- NOTE | ~2017-10-14 | PN ---
PATIENT:HUMBERTO BENNETT MEDICAL RECORD: [id number] LOCATION:[facility] ADMISSION DATE: 10/14/17 PROGRESS NOTE DATE OF SERVICE: 10/19/2017 SUBJECTIVE: No new complaint. OBJECTIVE: Staff has been in contact with the patient's daughter and explained the course of treatment up until this point. The patient is overall doing better. She is sleeping better, taking medications without objection. On exam, mood is for the most part euthymic. Affect remains very shallow. Speech is tangential. Content of thought is negative for overt psychosis. Sensorium shows no change. ASSESSMENT: No change in diagnosis. PLAN: 1. Continue current medication. 2. Continue supportive therapy. TRANSINT:[id number] Voice Confirmation ID: [id number] DOCUMENT ID: [id number] HAIDER LOMBARDO III, MD at 1010 CC: [id number] DICTATION DATE: 10/19/17 1116 BARREL ASSEMBLER HELPER: 10/19/17 1440 ADM IN [place] [id number] [place] [id number]
--- NOTE | ~2017-10-14 | PN ---
PATIENT:HUMBERTO BENNETT MEDICAL RECORD: [id number] LOCATION:[facility] ADMISSION DATE: 10/14/17 PROGRESS NOTE DATE OF SERVICE: 10/20/2017 SUBJECTIVE: No new complaint. OBJECTIVE: Overall, the patient is showing improvement. She has not had any episodes of yelling or combativeness. She is taking medications as prescribed. On exam, mood is euthymic. Affect is very shallow. Speech is tangential. Content of thought focuses only on somatic concerns. Sensorium shows no change. ASSESSMENT: No change in diagnosis. PLAN: 1. Maintain current medication. 2. Continue supportive therapy. TRANSINT:[id number] Voice Confirmation ID: [id number] DOCUMENT ID: [id number] HAIDER LOMBARDO III, MD at 0628 CC: [id number] DICTATION DATE: 10/20/17 1112 ASSOCIATE MANAGER: 10/20/17 1444 ADM IN [facility] [address] [place] [address]
--- NOTE | ~2017-10-14 | PN ---
PATIENT:HUMBERTO BENNETT MEDICAL RECORD: [id number] LOCATION:[facility] ADMISSION DATE: 10/14/17 PROGRESS NOTE DATE OF SERVICE: 10/23/2017 SUBJECTIVE: No new complaint. OBJECTIVE: The patient is more drowsy. She has been cooperative. Oral intake has been variable. On exam, mood is euthymic. Affect constricted. Speech terse. Content of thought is negative for overt psychosis. Sensorium unchanged. ASSESSMENT: No change in diagnosis. PLAN: 1. We will hold perphenazine. 2. Maintain other current medications. 3. Continue supportive therapy. TRANSINT:[id number] Voice Confirmation ID: [id number] DOCUMENT ID: [id number] HAIDER LOMBARDO III, MD at 0814 CC: [id number] DICTATION DATE: 10/23/17 1105 THREAD PULLING MACHINE ATTENDANT: 10/23/17 1231 ADM IN [place] [id number] [place] [id number]
--- NOTE | ~2017-10-14 | PN ---
PATIENT:HUMBERTO BENNETT MEDICAL RECORD: [id number] LOCATION:[facility] ADMISSION DATE: 10/14/17 PROGRESS NOTE DATE OF SERVICE: 11/01/2017 SUBJECTIVE: No new complaint. OBJECTIVE: The patient is continuing to sleep well. Her overall oral intake has improved. She did eat 100% of her breakfast yesterday, but did not eat much the other 2 meals. She has not exhibited any aggression. She remains drowsy during the late morning and afternoon, but is much more alert in the mornings. Overall, the patient appears to have reached her baseline. She is not taking any psychotropic medications at all. On exam, mood is euthymic. Affect very constricted. Speech terse. Content of thought focuses only on somatic concerns. Sensorium unchanged. ASSESSMENT: No change in diagnosis. PLAN: We will anticipate discharge tomorrow and continue current treatment plan. TRANSINT:[id number] Voice Confirmation ID: [id number] DOCUMENT ID: [id number] HAIDER LOMBARDO III, MD at 1857 CC: [id number] DICTATION DATE: 11/01/17 1144 SUSTAINABLE LANDSCAPE ARCHITECT: 11/01/17 1258 ADM IN [facility] [address] [place] [id number]
--- NOTE | ~2017-10-14 | DS ---
PATIENT:HUMBERTO BENNETT :[birth year] MEDICAL RECORD: [id number] DISCHARGE SUMMARY ADMISSION DATE: 10/14/17 DISCHARGE DATE: 11/02/17 DATE OF ADMISSION: 10/14/2017 DATE OF DISCHARGE: 11/02/2017 HISTORY: Third recent Long-Term admission for this 86-year-old white female. The patient had a previously diagnosed Alzheimer dementia. She is a resident of a jail. She had again become quite combative and was exhibiting visual hallucinosis. For further details, please see previously dictated history. COURSE IN THE HOSPITAL: The patient was initially treated with perphenazine in low doses (2 mg) to control her agitation. She was also started on Aricept 5 mg h.s. for dementing symptoms. The patient initially responded fairly well to the medication as well as supportive care. She was exhibiting elevated mood and agitation during the first week of the hospitalization; however, the patient became increasingly obtunded and as a result, perphenazine was discontinued. At a later time, Aricept was discontinued as well. The patient showed poor oral intake and Megace was increased to 40 mg twice a day. She was given multivitamins 1 daily, Flonase nasal spray, Pepcid 20 mg daily, vitamin D supplements, Ventolin inhaler as needed, and Synthroid 75 mcg daily. The patient, as mentioned, did become obtunded and was monitored closely and at one point, the patient did have brief hypotension. However, with cessation of most medications, the patient resumed a more baseline functioning. Appetite improved on the Megace. During the last week of the hospitalization, the patient did not show any evidence of aggressiveness or hallucinosis. Contact was maintained with the patient's family, the decision was made to have her return to the jail with minimal medication. At the time of discharge, active medications include Megace 40 mg twice a day, multivitamins 1 daily, artificial tears, Calmoseptine, Flonase, Pepcid, Voltaren gel, vitamin D supplements, and Synthroid 75 mcg daily. FINAL DIAGNOSES: AXIS I: Alzheimer dementia with behavioral disturbance. AXIS II: No diagnosis. AXIS III: Hypothyroidism, vitamin D deficiency, inhalant allergies, osteoarthritis, hyperlipidemia. AXIS IV: Moderate. AXIS V: 40. PLAN: 1. The patient is discharged on medication as described above. 2. Diet and activities as tolerated. 3. Follow up with primary care physician assigned to the jail. TRANSINT:[id number] Voice Confirmation ID: [id number] DOCUMENT ID: [id number] DISCHARGE SUMMARY REPORT [id number] HUMBERTO BENNETT III, HAIDER Bateman MD at 0933 CC: [id number] DICTATION DATE: 11/02/17 1216 DRILLER OPERATOR: 11/02/17 1515 DIS IN 11/02/17 [place] [address] [place] [address]
--- NOTE | ~2017-10-14 | PN ---
PATIENT:HUMBERTO BENNETT MEDICAL RECORD: [id number] LOCATION:[facility] ADMISSION DATE: 10/14/17 PROGRESS NOTE DATE OF SERVICE: 10/27/2017 SUBJECTIVE: No new complaint. OBJECTIVE: Staff report the patient is continuing to improve. She is much more alert. There was concern about some skin breakdown, but this appears to be resolving. On exam, mood is euthymic. Affect is restricted. Speech is rather terse. Content of thought focuses only on somatic concerns. Sensorium shows no change. ASSESSMENT: No change in diagnosis. PLAN: 1. Continue current treatment plan. 2. Continue supportive therapy. TRANSINT:[id number] Voice Confirmation ID: [id number] DOCUMENT ID: [id number] HAIDER LOMBARDO III, MD at 0959 CC: [id number] DICTATION DATE: 10/27/17 1116 BILINGUAL TEACHER ASSISTANT: 10/27/17 1502 ADM IN [place] [address] [place] [address]
--- NOTE | ~2017-10-14 | PN ---
PATIENT:HUMBERTO BENNETT MEDICAL RECORD: [id number] LOCATION:[facility] ADMISSION DATE: 10/14/17 PROGRESS NOTE DATE OF SERVICE: 10/18/2017 SUBJECTIVE: No new complaint. OBJECTIVE: The patient remains extremely garrulous. She has been overall cooperative without combativeness. On exam, mood is slightly anxious. Affect is shallow. Speech as noted above. Content of thought shows delusional ideation. Sensorium shows no change. ASSESSMENT: No change in diagnosis. PLAN: 1. Continue current medication. 2. Continue supportive therapy. TRANSINT:[id number] Voice Confirmation ID: [id number] DOCUMENT ID: [id number] HAIDER LOMBARDO III, MD at 1015 CC: [id number] DICTATION DATE: 10/18/17 1112 COMMUNICATIONS ENGINEER: 10/18/17 1426 ADM IN [place] [id number] [place] [id number]
--- NOTE | ~2017-10-14 | PN ---
PATIENT:HUMBERTO BENNETT MEDICAL RECORD: [id number] LOCATION:[facility] ADMISSION DATE: 10/14/17 PROGRESS NOTE DATE OF SERVICE: 10/26/2017 SUBJECTIVE: No new complaint. OBJECTIVE: The patient has continued to exhibit drowsiness, but is improved over the last 48 hours. On exam, mood is euthymic. Affect is constricted. Speech is terse. Content of thought focuses only on somatic concerns. Sensorium shows no change. ASSESSMENT: No change in diagnosis. PLAN: 1. Continue current medication. 2. Continue supportive therapy. TRANSINT:[id number] Voice Confirmation ID: [id number] DOCUMENT ID: [id number] HAIDER LOMBARDO III, MD at 0535 CC: [id number] DICTATION DATE: 10/26/17 1015 NURSE MONITORING: 10/26/17 1615 ADM IN [facility] [address] [place] [id number]
--- NOTE | ~2017-10-14 | PN ---
PATIENT:HUMBERTO BENNETT MEDICAL RECORD: [id number] LOCATION:[facility] ADMISSION DATE: 10/14/17 PROGRESS NOTE DATE OF SERVICE: 10/31/2017 SUBJECTIVE: No new complaint. OBJECTIVE: The patient is more alert. She ate very well today. On exam, mood is euthymic. Affect remains constricted. Speech is rather terse. Content of thought focuses only on somatic concerns. Sensorium shows no change. ASSESSMENT: No change in diagnosis. PLAN: 1. Continue all current medications. 2. Continue supportive therapy. TRANSINT:[id number] Voice Confirmation ID: [id number] DOCUMENT ID: [id number] HAIDER LOMBARDO III, MD at 1037 CC: [id number] DICTATION DATE: 10/31/17 1157 STEAM HOIST OPERATOR: 10/31/17 1424 ADM IN [facility] [address] [place] [address]
--- NOTE | ~2017-10-14 | PN ---
PATIENT:HUMBERTO BENNETT MEDICAL RECORD: [id number] LOCATION:[facility] ADMISSION DATE: 10/14/17 PROGRESS NOTE DATE OF SERVICE: 10/30/2017 SUBJECTIVE: No new complaint. OBJECTIVE: The patient remains quite tired. Most medications have been discontinued. Appetite remains poor. On exam, mood is euthymic. Affect very constricted. Speech is minimal. Sensorium shows no change. ASSESSMENT: No change in diagnosis. PLAN: 1. We will discontinue Aricept. 2. Continue other baseline medications. 3. Continue supportive care. TRANSINT:[id number] Voice Confirmation ID: [id number] DOCUMENT ID: [id number] HAIDER LOMBARDO III, MD at 1053 CC: [id number] DICTATION DATE: 10/30/17 1035 CORRECTIONAL SUPPLY SUPERVISOR: 10/30/17 1138 ADM IN [facility] [address] [place] [id number]
--- NOTE | ~2017-10-14 | PN ---
PATIENT:HUMBERTO BENNETT MEDICAL RECORD: [id number] LOCATION:[facility] ADMISSION DATE: 10/14/17 PROGRESS NOTE DATE OF SERVICE: 10/25/2017 SUBJECTIVE: No new complaint. OBJECTIVE: The patient remains quite confused. She is eating better according to staff. On exam, mood is slightly anxious. Affect is very shallow and childlike. Speech is rambling and nonsensical. Content of thought is negative for overt psychosis. Sensorium shows no change. ASSESSMENT: No change in diagnosis. PLAN: 1. Maintain current treatment plan (the patient is on no active psychotropic drugs). 2. Continue supportive therapy. TRANSINT:[id number] Voice Confirmation ID: [id number] DOCUMENT ID: [id number] HAIDER LOMBARDO III, MD at 0847 CC: [id number] DICTATION DATE: 10/25/17 1114 PEDIATRIC CLINICAL NURSE SPECIALIST: 10/25/17 [address] [facility] [address] [place] [id number]
--- NOTE | ~2017-10-14 | PN ---
PATIENT:HUMBERTO BENNETT MEDICAL RECORD: [id number] LOCATION:[facility] ADMISSION DATE: 10/14/17 PROGRESS NOTE DATE OF SERVICE: 10/17/2017 SUBJECTIVE: The patient does not offer specific complaint. OBJECTIVE: The patient has been fairly cooperative. She did sleep a great deal yesterday. This morning, she is much more alert. Mood is pleasant. Affect is somewhat constricted. Speech is tangential. Content of thought focuses only on somatic concerns. Sensorium shows no change. ASSESSMENT: No change in diagnosis. PLAN: 1. Continue current medication. 2. Continue supportive therapy. TRANSINT:[id number] Voice Confirmation ID: [id number] DOCUMENT ID: [id number] HAIDER LOMBARDO III, MD at 1026 CC: [id number] DICTATION DATE: 10/17/17 1111 PRODUCT STEWARD: 10/17/17 1214 ADM IN [place] [address] [place] [id number]
--- NOTE | ~2017-10-14 | PN ---
PATIENT:HUMBERTO BENNETT MEDICAL RECORD: [id number] LOCATION:[facility] ADMISSION DATE: 10/14/17 PROGRESS NOTE DATE OF SERVICE: 10/24/2017 SUBJECTIVE: No new complaint. OBJECTIVE: The patient is showing improved alertness and behavior. No further combativeness. On exam, mood more or less euthymic. Affect is shallow. Speech terse. Content of thought is negative for clear-cut psychosis. Sensorium unchanged. ASSESSMENT: No change in diagnosis. PLAN: 1. Maintain current medication. 2. Continue supportive therapy. TRANSINT:[id number] Voice Confirmation ID: [id number] DOCUMENT ID: [id number] HAIDER LOMBARDO III, MD at 1016 CC: [id number] DICTATION DATE: 10/24/17 1131 SPEECH LANGUAGE THERAPIST: 10/24/17 1358 ADM IN [place] [address] [place] [address]
--- NOTE | ~2017-10-14 | PN ---
PATIENT:HUMBERTO BENNETT MEDICAL RECORD: [id number] LOCATION:[facility] ADMISSION DATE: 10/14/17 PROGRESS NOTE DATE OF SERVICE: 10/21/2017 SUBJECTIVE: No new complaint. OBJECTIVE: The patient continues to show improvement. She slept well last night. No combative behavior noted. On exam, mood for the most part euthymic. Affect is very shallow. Speech is tangential. Content of thought is negative for overt psychosis. Sensorium unchanged. ASSESSMENT: No change in diagnosis. PLAN: 1. Continue current medication. 2. Continue supportive therapy. TRANSINT:[id number] Voice Confirmation ID: [id number] DOCUMENT ID: [id number] HAIDER LOMBARDO III, MD at 0706 CC: [id number] DICTATION DATE: 10/21/17 0834 CHIEF DIGITAL MEDIA OFFICER: 10/21/17 1218 ADM IN [facility] [address] [place] [id number]
--- NOTE | ~2017-10-14 | PN ---
PATIENT:HUMBERTO BENNETT MEDICAL RECORD: [id number] LOCATION:[facility] ADMISSION DATE: 10/14/17 PROGRESS NOTE DATE OF SERVICE: 10/28/2017 SUBJECTIVE: The patient's case was discussed with staff. She has no new complaint. OBJECTIVE: The patient is in good behavioral control with limited insight about her condition. She tolerates her medicines well. ASSESSMENT: No change in diagnoses. PLAN: The patient is not eating well. I do intend to start her on Megace for appetite stimulation. She is severely impaired cognitively. TRANSINT:[id number] Voice Confirmation ID: [id number] DOCUMENT ID: [id number] FAWN SIDDIQI MD at 1341 CC: [id number] DICTATION DATE: 10/28/17 0937 FILAMENT COIL WINDER: 10/28/17 1454 ADM IN [place] [id number] [place] [id number]
[~2017-10-14 19:13] MED LIST changes: +ACETAMINOPHEN500 M1 PO; +ARICEPT5 MG PO; +ARTIFICIAL TEAR15 ML EACH EYE; +ATIVAN0.5 MG PO; +BUSPAR10 MG PO; +CALMOSEPTINE OI71 GM TOPICAL; +FLORAJEN3 CAPS460 MG PO; +FLUTICASONE PRO16 GM NASAL; +LIDODERM 5 %1 PATCH TRANSDERM; +MEGACE40 MG PO; +MULTIPLE VITAMI1 TA1 PO; +PEPCID20 MG PO; +PROAIR HFA8.5 GM INH; +PROZAC20 MG PO; +SEROQUEL50 MG PO; +SYNTHROID75 MCG PO; +VITAMIN B COMPLEX; +VITAMIN D31000 UNIT PO; +VOLTAREN100 GM TOPICAL
[2017-10-14 19:55] LABS: BASOPHILS 0 % (0-2); EOSINOPHILS 2.4 % (0-7); HEMATOCRIT 31.8 % (36.0-48.0); HEMOGLOBIN 10.3 g/dL (12-16); IMMATURE GRANULOCYTES 0.6 % (0-5); LYMPHOCYTES 25.8 % (15-50); MCH 29.8 pg (26.0-34.0); MCHC 32.4 g/dL (31.0-37.0); MCV 91.9 fL (80.0-100.0); MEAN PLATELET VOLUME 9.3 fL (7.4-10.4); NEUTROPHILS 61.2 % (40-80); RBC 3.46 10x6/uL (4.00-5.40); RDW 15.3 % (11.5-14.5); WBC 6.6 10x3/uL (4.8-10.8)
[2017-10-14 19:58] LABS: PLATELET COUNT 283 10x3/uL (130-400)
[2017-10-14 20:07] LABS: ALKALINE PHOSPHATASE 143 U/L (46-116); ALT (SGPT) 11 U/L (10-68); CALC OSMOLALITY 272 mosm/kg (275-300); CARBON DIOXIDE 28.9 mmol/L (21.0-32.0); CHLORIDE - SERUM 103 mmol/L (98-107); CREATININE - SERUM 0.9 mg/dL (0.6-1.3); GLUCOSE 137 mg/dL (74-106); POTASSIUM - SERUM 3.8 mmol/L (3.5-5.1); PROTEIN - SERUM 6.4 g/dL (6.4-8.2); SODIUM 136 mmol/L (136-145); UREA NITROGEN 11 mg/dL (7-18); eGFR NON AFRICAN AMERICAN 63 mL/min (90-120)
[2017-10-14 20:08] LABS: ALBUMIN 2.1 g/dL (3.4-5.0)
[2017-10-14 20:17] LABS: CREATINE KINASE 23 UL (21-215); PRO BNP 378 pg/mL (0-450); THYROID STIMULATING HORMONE 10.19 uIU/mL (0.36-3.74); TROPONIN-I < 0.017 ng/mL (0.000-0.060)
[2017-10-14 20:55] LABS: APPEARANCE HAZY (CLEAR); BILIRUBIN NEGATIVE (NEGATIVE); COLOR YELLOW (YELLOW); GLUCOSE NEGATIVE (NEGATIVE); KETONE NEGATIVE (NEGATIVE); NITRITE POSITIVE (NEGATIVE); PROTEIN TRACE mg/dL (NEGATIVE); UROBILINOGEN NORMAL (NORMAL)
[2017-10-14 20:57] LABS: RED CELLS - URINE 0-5 /hpf (0-5)
[2017-10-14 20:58] LABS: BACTERIA MANY /hpf (NONE SEEN); EPITHELIAL CELLS 0-5 /hpf (0-5)
[2017-10-14 21:01] LABS: UDS - AMPHET NEGATIVE QUAL (NEGATIVE); UDS - BARB NEGATIVE QUAL (NEGATIVE); UDS - BENZO POSITIVE QUAL (NEGATIVE); UDS - COCAINE NEGATIVE QUAL (NEGATIVE); UDS - OPIATE NEGATIVE QUAL (NEGATIVE); UDS - PCP NEGATIVE QUAL (NEGATIVE); UDS - THC NEGATIVE QUAL (NEGATIVE)
[2017-10-15 08:35] LABS: BASOPHILS 0 % (0-2); EOSINOPHILS 1.5 % (0-7); HEMATOCRIT 32.6 % (36.0-48.0); HEMOGLOBIN 10.7 g/dL (12-16); IMMATURE GRANULOCYTES 0.7 % (0-5); MCH 29.7 pg (26.0-34.0); MCHC 32.8 g/dL (31.0-37.0); MCV 90.6 fL (80.0-100.0); MEAN PLATELET VOLUME 9.5 fL (7.4-10.4); MONOCYTES 8.4 % (2-11); NEUTROPHILS 69.4 % (40-80); PLATELET COUNT 324 10x3/uL (130-400); RDW 15.2 % (11.5-14.5); WBC 7.4 10x3/uL (4.8-10.8)
[2017-10-15 08:49] VITALS: BP 135/76
[2017-10-15 09:08] LABS: ALBUMIN 2.4 g/dL (3.4-5.0); ANION GAP 11.6 mmol/L (8-16); BILIRUBIN - TOTAL 0.3 mg/dL (0.2-1.3); CALCIUM 9.1 mg/dL (8.5-10.1); CARBON DIOXIDE 28.6 mmol/L (21.0-32.0); CHOL - HDL RATIO 4.5 ratio (2.3-4.1); CREATININE - SERUM 0.9 mg/dL (0.6-1.3); LDL-HDL RATIO 3.1 ratio (1.5-3.5); POTASSIUM - SERUM 4.2 mmol/L (3.5-5.1); PROTEIN - SERUM 6.3 g/dL (6.4-8.2); THYROID STIMULATING HORMONE 14.71 uIU/mL (0.36-3.74)
[2017-10-15 19:04] VITALS: BP 135/76
[2017-10-15 20:15] VITALS: BP 116/67
[2017-10-16 10:12] VITALS: BMI 28.7
[2017-10-16 14:52] VITALS: Ht 152.4 cm; Wt 66.6 kg
[2017-10-16 20:32] VITALS: BP 175/79
[2017-10-17 08:21] LABS: FOLATE (FOLIC ACID) - SERUM 12.6 ng/mL (>3.0); RAPID PLASMA REAGIN Non Reactive (Non Reactive)
[2017-10-17 08:26] VITALS: BP 115/56
[2017-10-17 12:55] LABS: VITAMIN D 25 HYDROXY 56.2 ng/mL (30.0-100.0)
[2017-10-17 20:21] VITALS: BP 136/70
[2017-10-18 09:33] VITALS: BP 115/56
[2017-10-18 19:21] VITALS: BP 114/50
[2017-10-19 07:00] VITALS: BP 146/79
[2017-10-19 21:53] VITALS: BP 132/68
[2017-10-20 18:43] VITALS: BP 127/55
[2017-10-20 19:27] VITALS: BP 141/65
[2017-10-21 10:33] VITALS: BP 109/59
[2017-10-21 19:42] VITALS: BP 160/75
[2017-10-22 07:00] VITALS: BP 161/73
[2017-10-22 19:36] VITALS: BP 165/74
[2017-10-23 07:47] VITALS: BP 132/79
[2017-10-23 20:32] VITALS: BP 134/60
[2017-10-24 07:25] VITALS: BP 119/68
[2017-10-24 20:20] VITALS: BP 133/60
[2017-10-25 09:39] VITALS: BP 139/53
[2017-10-25 19:00] VITALS: BP 117/76
[2017-10-26 08:11] VITALS: BP 136/76
[2017-10-26 19:06] VITALS: BP 128/74
[2017-10-27 10:04] VITALS: BP 127/97
[2017-10-28 09:42] VITALS: BP 144/46
[2017-10-28 20:46] VITALS: BP 140/60
[2017-10-29 07:00] VITALS: BP 151/68
[2017-10-29 19:35] VITALS: BP 168/78
[2017-10-30 07:40] VITALS: BP 138/55
[2017-10-30 18:37] VITALS: BP 133/69
[2017-10-31 10:20] VITALS: BP 141/67
[2017-10-31 22:23] VITALS: BP 124/67
[2017-11-01 09:45] VITALS: BP 140/58
[2017-11-01] MEDS ORDERED: MEGACE40 MG PO (11:34)
[2017-11-01 20:05] VITALS: BP 150/89
[2017-11-02 08:42] VITALS: BP 150/78
== END 2017-11-02 13:00 | DRG 57 ==
LOC: D.ER 19:13 → D.PSYCH 22:00
PROVIDERS: Family Medicine; Psychiatry & Neurology Psychiatry
DX: G30.9 Alzheimer's disease, unspecified (principal); F02.81 Dementia in other diseases classified elsewhere, unspecified severity, with behavioral disturbance; N39.0 Urinary tract infection, site not specified; E03.9 Hypothyroidism, unspecified; E55.9 Vitamin D deficiency, unspecified; J30.89 Other allergic rhinitis; M19.90 Unspecified osteoarthritis, unspecified site; E78.5 Hyperlipidemia, unspecified; F41.8 Other specified anxiety disorders; H04.129 Dry eye syndrome of unspecified lacrimal gland; R26.9 Unspecified abnormalities of gait and mobility; B96.5 Pseudomonas (aeruginosa) (mallei) (pseudomallei) as the cause of diseases classified elsewhere; M25.561 Pain in right knee; Z91.81 History of falling